=== PATIENT | male | born 1955 | race African-American/Black ===

== ENCOUNTER 2019-03-27 15:59 | Emergency (ER) | payer MEDICAID ==
[~2019-03-27] VITALS: Ht 180.3 cm; Wt 102.1 kg
[~2019-03-27 15:59] MED LIST: CAR3125T OR; DIGO0.1262 PO; ENAL2.5T PO; SIMV-8 PO
[2019-03-27] MEDS ORDERED: HYDROcodone-ACET 5/325MG TAB PO ONE (17:00)
[2019-03-27 17:25] VITALS: BP 120/68
== END 2019-03-27 18:09 | disposition home or self-care (01) ==
LOC: ER 16:08
DX: I87.2 Venous insufficiency (chronic) (peripheral) (principal); J45.909 Unspecified asthma, uncomplicated; I25.2 Old myocardial infarction; E11.22 Type 2 diabetes mellitus with diabetic chronic kidney disease; I13.0 Hypertensive heart and chronic kidney disease with heart failure and stage 1 through stage 4 chronic kidney disease, or unspecified chronic kidney disease; N18.9 Chronic kidney disease, unspecified; I50.9 Heart failure, unspecified; F14.90 Cocaine use, unspecified, uncomplicated; F15.90 Other stimulant use, unspecified, uncomplicated; Z88.2 Allergy status to sulfonamides; Z79.899 Other long term (current) drug therapy; Z95.0 Presence of cardiac pacemaker
CPT/HCPCS: 93971

== ENCOUNTER 2019-08-03 17:37 | Inpatient (IN) | payer MEDICARE, MEDICAID ==
[~2019-08-03] VITALS: Ht 180.3 cm; Wt 104.9 kg
[2019-08-03] MEDS ORDERED: ACETAMINOPHEN 325 MG TAB PO ONE (18:30)
[2019-08-03 19:20] LABS: Basophils # (auto) 0 uL; Basophils % (auto) 0.4 % (0.0-2.0); Eosinophils # (auto) 0 uL; Hematocrit 47.9 % (41.0-53.0); Hemoglobin 16.1 g/dL (13.5-17.5); Lymphocytes # (auto) 1.4 uL; Lymphocytes % (auto) 12.6 % (10.0-50.0); Mean Corpuscular Hemoglobin 32.2 pg (28.0-32.0); Mean Corpuscular Hgb Conc. 33.5 g/dL (32.0-36.0); Mean Corpuscular Volume 96.1 fL (80.0-100.0); Monocytes # (auto) 1.1 uL; Monocytes % (auto) 10.3 % (0.0-12.0); Neutrophils # (auto) 8.3 uL; Neutrophils % (auto) 76.7 % (37.0-80.0); Platelet Count (auto) 186 10^3/uL (140-450); Red Blood Cells 4.98 10^6/uL (4.5-5.90); Red Cell Distribution Width 14.5 % (11.8-14.3); White Blood Cell 10.9 10^3/uL (4.4-10.8)
[2019-08-03 19:29] LABS: Calcium 8.4 mg/dL (8.5-10.1); Potassium 3.9 mmol/L (3.5-5.1)
[2019-08-03 19:32] LABS: BUN/Creatinine Ratio 12.8; Bilirubin, Total 1.4 mg/dL (0.2-1.0); Total Protein 8.6 g/dL (6.4-8.2)
[2019-08-03 19:35] LABS: INR 1.13 (0.9-1.15); Partial Thromboplastin Time 27.7 sec (23.64-32.05)
[2019-08-03] MEDS ORDERED: FUROSEMIDE 40 MG/4 ML VIAL IV ONE (19:45)
[2019-08-03] MEDS ORDERED: IBUPROFEN 600 MG TAB PO ONE (20:15)
[2019-08-03] MEDS ORDERED: ACETAMINOPHEN 325 MG TAB PO PRN (21:15)
[2019-08-03] MEDS ORDERED: TEMAZEPAM 15 MG CAP PO PRN (21:15)
[2019-08-03] MEDS ORDERED: DEXTROSE (50%) 50ML SYRG IV PRN ×2 (21:15→22:30)
[2019-08-03] MEDS ORDERED: cefTRIAXone 1GM/50ML D5W 50 ML IV ONE (21:15)
[2019-08-03] MEDS ORDERED: MORPHINE SULF INJ 2 MG/ML SYRINGE 1ML IV PRN (21:15)
[2019-08-03] MEDS ORDERED: ALBUTEROL SULF 2.5 MG/0.5ML(0.5%) NEB SOLN NEB PRN ×2 (21:15)
[2019-08-03] MEDS ORDERED: NITROGLYCERIN 0.4 MG SL TAB SL PRN (21:15)
[2019-08-03 21:48] VITALS: BP 104/68
--- NOTE | 2019-08-03 21:52 | NUR ---
RT NOTE PT WAS SEE [facility] RT OFR PRN HHN TX. NO PRN TX INDICATED AT THIS TIME. HR 80. RR 18. BS CTA, POX 97%. CONT ORDERED Addendum: 08/03/19 at 2153 by Brooklyn Aiken RT Amended: Links added.
[2019-08-03] MEDS ORDERED: ENOXAPARIN SOD 100 MG/1 ML SYRINGE SC ONE (22:30)
[2019-08-03] MEDS: CARVEDILOL 3.125 MG TAB PO SCH (22:45)
[2019-08-03] MEDS: ATORVASTATIN 20 MG TAB PO SCH (22:45)
[2019-08-04] MEDS ORDERED: InsuLIN REG 1unit/0.01ml Soln (100units/ml) SC SCH
[2019-08-04] MEDS ORDERED: ACCU-CHEK COMFORT CURVE STRIP VI SCH
[2019-08-04] MEDS: ACCU-CHEK COMFORT CURVE STRIP VI SCH ×5 (01:40→23:21)
[2019-08-04] MEDS: InsuLIN REG 1unit/0.01ml Soln (100units/ml) SC SCH ×5 (01:40→23:21)
--- NOTE | 2019-08-04 02:51 | NUR ---
Telemetry admit from ER AILYN NORTON admitted to Telemetry unit after SBAR received. Patient oriented to CARLOS AHN RN primary RN, unit, room, bed, and unit policies regarding patient care and visiting hours. Patient now on continuous telemetry monitoring, tele box # 81 and telemetry reading on arrival to unit is SR. Patient placed on bedside oxygen, weighed by bedscale and encouraged to call if they need something. All questions and concerns addressed, patient verbalized understanding. Note:
[2019-08-04 05:07] VITALS: BP 109/77
[2019-08-04] MEDS ORDERED: FUROSEMIDE 20 MG/2 ML VIAL IV SCH (06:00)
[2019-08-04 06:07] LABS: Basophils # (auto) 0 uL; Basophils % (auto) 0.3 % (0.0-2.0); Eosinophils # (auto) 0 uL; Eosinophils % (auto) 0.1 % (0.0-7.0); Hematocrit 44.7 % (41.0-53.0); Hemoglobin 15.2 g/dL (13.5-17.5); Lymphocytes % (auto) 9.8 % (10.0-50.0); Mean Corpuscular Hemoglobin 32.7 pg (28.0-32.0); Mean Corpuscular Volume 96.1 fL (80.0-100.0); Monocytes # (auto) 1.2 uL; Monocytes % (auto) 11.2 % (0.0-12.0); Neutrophils # (auto) 8.1 uL; Neutrophils % (auto) 78.6 % (37.0-80.0); Nucleated Red Blood Cells % 0.1 %; Platelet Count (auto) 158 10^3/uL (140-450); Red Blood Cells 4.66 10^6/uL (4.5-5.90); Red Cell Distribution Width 14.3 % (11.8-14.3); White Blood Cell 10.3 10^3/uL (4.4-10.8)
[2019-08-04 06:24] LABS: Calcium 8.1 mg/dL (8.5-10.1); Potassium 4.1 mmol/L (3.5-5.1)
[2019-08-04 06:27] LABS: BUN/Creatinine Ratio 12.8
--- NOTE | 2019-08-04 07:30 | NUR ---
Opening Shift Note Assumed care of patient, awake and alert. No S/S of distress/SOB or pain. Instructed on POC and to call for assist PRN, will continue to monitor for changes Q1hr and PRN. Bed locked in lowest position with two side rails up and call light in reach.
[2019-08-04 08:00] VITALS: BP 118/81
[2019-08-04 08:09] LABS: Urine WBC None Seen /hpf (0 - 3)
--- NOTE | 2019-08-04 08:25 | NUR ---
Respiratory note: PT AWAKE, AND ALERT. NO RESPIRATORY DISTRESS NOTED. SPO2 95% ON RA, HR 79, RR 18, BS CLEAR T/O. NO PRN MEDNEB TX INDICATED AT THIS TIME. PT INFORMED TO PUSH CALL BUTTON IF INCREASED WOB, SOB, OR WHEEZING OCCURS.
[2019-08-04 08:34] LABS: Alcohol, Urine < 3.0 mg/dL (0-5); Amphetamine Screen, Urine POSITIVE (NEGATIVE); Barbiturate Scree,Urine NEGATIVE (NEGATIVE); Benzodiazephine Screen, Urine NEGATIVE (NEGATIVE); Cannabinoid Screen, Urine POSITIVE (NEGATIVE); Cocaine Screen, Urine NEGATIVE (NEGATIVE); Opiate Scree,Urine NEGATIVE (NEGATIVE); Phencyclidine Screen, Urine NEGATIVE (NEGATIVE)
[2019-08-04 08:53] LABS: Urine Bacteria NONE SEEN /hpf (None Seen); Urine Blood Negative /uL (Negative); Urine Hyaline Cast FEW /lpf (0 - 2); Urine Mucus FEW (None Seen); Urine Specific Gravity 1.009 (1.001-1.035)
[2019-08-04 09:00] VITALS: BP 118/81
[2019-08-04] MEDS: HYDROcodone-ACET 5/325MG TAB PO PRN ×2 (09:07→17:03)
[2019-08-04] MEDS: cefTRIAXone 1GM/50ML D5W 50 ML IV SCH (09:07)
[2019-08-04] MEDS: AMIODARONE HCL 200 MG TAB PO SCH (09:33)
[2019-08-04] MEDS: CLOPIDOGREL BISULFATE 75 MG TAB PO SCH (09:33)
[2019-08-04] MEDS: PANTOPRAZOLE 40 MG TAB PO SCH (09:33)
[2019-08-04] MEDS: CARVEDILOL 3.125 MG TAB PO SCH ×2 (09:34→21:42)
[2019-08-04] MEDS ORDERED: ASPirin 81 mg TAB PO SCH (10:00)
--- NOTE | 2019-08-04 10:45 | NUR ---
DR VI DIEGO
[2019-08-04 13:00] VITALS: BP 109/79
--- NOTE | 2019-08-04 16:50 | NUR ---
Dr. Liang Paged Received call from [employer] that patient had a run of multifocal PVC's and couplets. Dr. Liang paged to make aware. Waiting for call back.
[2019-08-04 17:00] VITALS: BP 144/67
[2019-08-04] MEDS: ASPirin 81 mg TAB PO SCH (17:00)
--- NOTE | 2019-08-04 17:30 | NUR ---
DR. LEBRON PAGED Patient requested to take a shower. Per Dr. Lebron, okay for patient to shower. Will continue to monitor.
[2019-08-04] MEDS: FUROSEMIDE 20 MG/2 ML VIAL IV SCH ×2 (18:00→18:27)
--- NOTE | 2019-08-04 18:23 | NUR ---
RT NOTE PRN ASSESSMENT DONE PRN NOT INDICATED AT THIS TIME.
--- NOTE | 2019-08-04 18:34 | NUR ---
WOUND PHOTOS TOOK PICTURES OF OLD WOUND THAT ARE SLIGHTLY OPEN ON THE LEFT KUNZ. PER PATIENT THEY WERE ALREADY THERE. DID NOT PLACE CONSULT ONLY PICTURES TAKEN.
--- NOTE | 2019-08-04 20:08 | NUR ---
Opening Shift Note Assumed care of patient, awake and alert. No S/S of distress/SOB or pain. Instructed on POC and to call for assist PRN, will continue to monitor for changes Q1hr and PRN.
[2019-08-04] MEDS: ATORVASTATIN 20 MG TAB PO SCH (21:42)
[2019-08-04 22:00] VITALS: BP 105/67
[2019-08-04] MEDS ORDERED: VANCOMYCIN PER PHARMACY 0 MG IV SCH (23:15)
--- NOTE | 2019-08-04 23:20 | NUR ---
Informed Dr. Upton T, regarding patient is blood culture positive in gram positive cocci in clusters, with order of give one gram vancomycin x one, then vancomycin every 12 hour, vanco. per pharmacy, repeat blood culture.
[2019-08-04] MEDS ORDERED: VANCOMYCIN 1GM/250ML 250 ML IV ONE (23:30)
[2019-08-05 04:30] VITALS: BP 103/72
[2019-08-05] MEDS: FUROSEMIDE 20 MG/2 ML VIAL IV SCH (05:22)
[2019-08-05] MEDS: ACCU-CHEK COMFORT CURVE STRIP VI SCH ×3 (05:23→17:50)
[2019-08-05] MEDS: InsuLIN REG 1unit/0.01ml Soln (100units/ml) SC SCH ×3 (05:46→17:50)
[2019-08-05 05:52] LABS: Basophils # (auto) 0 uL; Basophils % (auto) 0.5 % (0.0-2.0); Eosinophils # (auto) 0 uL; Eosinophils % (auto) 0.1 % (0.0-7.0); Hematocrit 43.2 % (41.0-53.0); Lymphocytes # (auto) 1.3 uL; Lymphocytes % (auto) 14.8 % (10.0-50.0); Mean Corpuscular Hemoglobin 32.9 pg (28.0-32.0); Mean Corpuscular Hgb Conc. 34.6 g/dL (32.0-36.0); Mean Corpuscular Volume 95.1 fL (80.0-100.0); Monocytes # (auto) 0.9 uL; Monocytes % (auto) 10.8 % (0.0-12.0); Neutrophils # (auto) 6.3 uL; Neutrophils % (auto) 73.8 % (37.0-80.0); Nucleated Red Blood Cells % 0.1 %; Platelet Count (auto) 166 10^3/uL (140-450); Red Blood Cells 4.55 10^6/uL (4.5-5.90); Red Cell Distribution Width 14.1 % (11.8-14.3); White Blood Cell 8.6 10^3/uL (4.4-10.8)
[2019-08-05] MEDS: HYDROcodone-ACET 5/325MG TAB PO PRN ×3 (05:53→21:47)
[2019-08-05 05:54] LABS: INR 1.13 (0.9-1.15); Partial Thromboplastin Time 31.1 sec (23.64-32.05)
[2019-08-05 05:57] LABS: Albumin 3.1 g/dL (3.4-5.0); Calcium 7.7 mg/dL (8.5-10.1)
[2019-08-05 06:00] LABS: BUN/Creatinine Ratio 15.2; Bilirubin, Total 0.9 mg/dL (0.2-1.0); Potassium 3.7 mmol/L (3.5-5.1); Total Protein 7.2 g/dL (6.4-8.2)
--- NOTE | 2019-08-05 07:19 | NUR ---
Report given to Mario Mcgee,patient is resting no distress.
--- NOTE | 2019-08-05 07:25 | NUR ---
PAGED DR GERARDO FOR TROPONIN .[phone]
[2019-08-05 09:00] VITALS: BP_SYST 107; BP_SYST 116; BP_DIAS 54; BP_DIAS 71
[2019-08-05] MEDS: CARVEDILOL 3.125 MG TAB PO SCH ×2 (09:58→21:46)
[2019-08-05] MEDS: AMIODARONE HCL 200 MG TAB PO SCH (10:00)
[2019-08-05] MEDS ORDERED: VANCOMYCIN 1GM/250ML 250 ML IV SCH (10:00)
[2019-08-05] MEDS: CLOPIDOGREL BISULFATE 75 MG TAB PO SCH (11:07)
[2019-08-05] MEDS: ASPirin 81 mg TAB PO SCH (11:07)
[2019-08-05] MEDS: PANTOPRAZOLE 40 MG TAB PO SCH (11:07)
[2019-08-05] MEDS: cefTRIAXone 1GM/50ML D5W 50 ML IV SCH (11:08)
[2019-08-05] MEDS: FUROSEMIDE 40 MG/4 ML VIAL IV SCH (11:10)
[2019-08-05 13:00] VITALS: BP_SYST 116; BP_SYST 128; BP_DIAS 54; BP_DIAS 67
[2019-08-05 17:00] VITALS: BP 112/56
[2019-08-05] MEDS ORDERED: VANCOMYCIN 1GM/250ML 250 ML IV ONE (18:00)
--- NOTE | 2019-08-05 20:08 | NUR ---
Respiratory note: ASSESSMENT FOR PRN MED NEB TX. HR 68, SPO2 93% ON ROOM AIR, RR 17, BS CLEAR/DIMINISHED. PT PRESENTING NO RESPIRATORY DISTRESS AT THIS TIME. MED NEB TX NOT INDICATED. PT AWARE TO HAVE RN PAGE RT IF MED NEB TX IS NEEDED. WILL CONTINUE TO MONITOR.
[2019-08-05 21:36] VITALS: BP 140/92
[2019-08-05] MEDS: ATORVASTATIN 20 MG TAB PO SCH (21:45)
[2019-08-06] MEDS: ACCU-CHEK COMFORT CURVE STRIP VI SCH ×4 (00:13→18:35)
[2019-08-06 05:00] VITALS: BP 129/77
[2019-08-06] MEDS: InsuLIN REG 1unit/0.01ml Soln (100units/ml) SC SCH ×4 (06:00→18:00)
[2019-08-06 06:02] LABS: Potassium 3.7 mmol/L (3.5-5.1)
--- NOTE | 2019-08-06 06:15 | NUR ---
ENDOSCOPY REGISTERED NURSE REPORT RUN OF VTACH. upon entering room, pt awake, alert and oriented x4. pt on room air no distress noted. pt denies any pain. 12 lead ekg obtained at bedside, placed in chart. will continue to monitor. will endorse to krysta RN.
[2019-08-06 06:26] LABS: Albumin 3.1 g/dL (3.4-5.0); BUN/Creatinine Ratio 14.9; Bilirubin, Total 0.8 mg/dL (0.2-1.0); Calcium 8.2 mg/dL (8.5-10.1); Total Protein 8.1 g/dL (6.4-8.2)
[2019-08-06] MEDS: HYDROcodone-ACET 5/325MG TAB PO PRN ×2 (06:30→19:16)
--- NOTE | 2019-08-06 06:30 | NUR ---
blood sugar 49. pt awake, alert and oriented x4. pt given 12 oz of orange juice which he tolerated without issue. recheck in 15 minutes, blood glucose recheck 79. call light in reach, no additional complaints.
--- NOTE | 2019-08-06 07:25 | NUR ---
paged hospitalist for run of vtach. pt no complaints at this time. endorsed to day nurse wesley
[2019-08-06 08:37] VITALS: BP 142/88
--- NOTE | 2019-08-06 08:50 | NUR ---
Respiratory note: HR 58, RR 14, SPO2 95% ON RA, BS CLEAR. PRN MED NEB TX NOT INDICATED AT THIS TIME. NO SIGNS OR SYMPTOMS OF RESPIRATORY DISTRESS NOTED. PT INFORMED TO HIT CALL BUTTON IF FEELING SOB OR WHEEZING.
[2019-08-06] MEDS: FUROSEMIDE 40 MG/4 ML VIAL IV SCH (10:27)
[2019-08-06] MEDS: cefTRIAXone 1GM/50ML D5W 50 ML IV SCH (10:27)
[2019-08-06] MEDS: CARVEDILOL 3.125 MG TAB PO SCH ×2 (10:28→22:40)
[2019-08-06] MEDS: ASPirin 81 mg TAB PO SCH (10:28)
[2019-08-06] MEDS: AMIODARONE HCL 200 MG TAB PO SCH (10:28)
[2019-08-06] MEDS: PANTOPRAZOLE 40 MG TAB PO SCH (10:29)
[2019-08-06] MEDS: CLOPIDOGREL BISULFATE 75 MG TAB PO SCH (10:29)
[2019-08-06 12:51] VITALS: BP 132/82
[2019-08-06] MEDS ORDERED: FURO1TAB31 PO (14:04)
[2019-08-06] MEDS ORDERED: PANT40T PO (14:04)
[2019-08-06] MEDS ORDERED: ASPI81CH43 PO (14:04)
[2019-08-06] MEDS ORDERED: ATOR20TA50 PO (14:04)
[2019-08-06] MEDS ORDERED: CAR3125T PO (14:04)
[2019-08-06] MEDS ORDERED: AMIO200T4 PO (14:04)
[2019-08-06] MEDS ORDERED: LEVO750T64 PO (14:04)
[2019-08-06] MEDS ORDERED: CLOP75TA28 PO (14:04)
[2019-08-06] MEDS ORDERED: ACE325T PO (14:04)
[2019-08-06] MEDS ORDERED: LISI-275 PO (14:04)
[2019-08-06 15:11] VITALS: BP 142/88
[2019-08-06 16:41] VITALS: BP 162/71
--- NOTE | 2019-08-06 16:43 | NUR ---
DAUGHTER AT BEDSIDE PATIENT STATED HE DOES NOT FEEL WELL. HE STATES HE IS A LITTLE SHORT OF BREATH. OXYGEN SATURATION 90% ON ROOM AIR. PAGED RESPIRATORY FOR A BREATHING TREATMENT.
--- NOTE | 2019-08-06 17:07 | NUR ---
RT AT BEDSIDE OXYGEN OXYGEN 83 % ON ROOM AIR BREATHING TREATMENT GIVEN PATIENT ON 4 LITERS NASAL CANULA SATING 98% I ASKED PATIENT HOW HE FEELS HE SAID HE WANTS TO GO HOME AND FEELS LIKE HE CAN RUN. DAUGHTER AT BEDSIDE. WILL CONTINUE TO MONITOR. PATIENT DOES NOT HAVE HOME OXYGEN. WILL PAGE HOSPITALIST FOR POSSIBLE ABG ON ROOM AIR TO MAKE SURE PATIENT DOES NEED OXYGEN FOR HOME.
--- NOTE | 2019-08-06 17:11 | NUR ---
PAGED HOSPITALIST FOR ABG ORDER.
--- NOTE | 2019-08-06 19:15 | NUR ---
DISCHARGE ON HOLD Dr Vogel stated pt will be monitored overnight and reevaluated in the morning.
--- NOTE | 2019-08-06 19:30 | NUR ---
open note assumed care of pt. upon entering room pt awake, alert and oriented x4. pt daughter at bedside. pt updated on plan of care no questions at this time. pt medicated per MD order for headache. pt bed locked, low and 2x rails up. pt on 2L NC with no distress noted or expressed. pt call light in reach, encouraged by this nurse to call as needed. will round q1hr and prn
--- NOTE | 2019-08-06 20:00 | NUR ---
pt assisted to bathroom with standby assist.
[2019-08-06 21:28] VITALS: BP 125/85
[2019-08-06] MEDS: ATORVASTATIN 20 MG TAB PO SCH (22:40)
--- NOTE | 2019-08-06 22:46 | NUR ---
Respiratory note: ASSESSED PT FOR PRN MED NEB TX. PT IS CURRENTLY ON 2 L/M NC: HR 69, RR 18, SPO2 97%. PT SHOWS NO S/S OF SOB OR RESPIRATORY DISTRESS. MED NEB TX NOT INDICATED AT THIS TIME. PT AWARE TO NOTIFY RESPIRATORY IF SOB OCCURS. WILL CONTINUE TO MONITOR.
[2019-08-07] MEDS: ACCU-CHEK COMFORT CURVE STRIP VI SCH ×3 (00:26→12:00)
[2019-08-07 03:21] VITALS: BP 128/87
[2019-08-07] MEDS: HYDROcodone-ACET 5/325MG TAB PO PRN ×2 (03:59→10:08)
[2019-08-07 05:19] LABS: Basophils # (auto) 0.4 uL; Basophils % (auto) 3.4 % (0.0-2.0); Eosinophils # (auto) 0 uL; Eosinophils % (auto) 0.1 % (0.0-7.0); Hematocrit 43.6 % (41.0-53.0); Hemoglobin 15.4 g/dL (13.5-17.5); Lymphocytes # (auto) 1.3 uL; Lymphocytes % (auto) 11.4 % (10.0-50.0); Mean Corpuscular Hemoglobin 32.4 pg (28.0-32.0); Mean Corpuscular Hgb Conc. 35.2 g/dL (32.0-36.0); Monocytes # (auto) 1.2 uL; Monocytes % (auto) 10.5 % (0.0-12.0); Neutrophils # (auto) 8.5 uL; Neutrophils % (auto) 74.6 % (37.0-80.0); Platelet Count (auto) 180 10^3/uL (140-450); Red Blood Cells 4.74 10^6/uL (4.5-5.90); Red Cell Distribution Width 14.2 % (11.8-14.3); White Blood Cell 11.5 10^3/uL (4.4-10.8)
[2019-08-07 05:25] VITALS: BP 118/76
[2019-08-07 05:37] LABS: Albumin 2.9 g/dL (3.4-5.0); Calcium 8.1 mg/dL (8.5-10.1); Potassium 3.9 mmol/L (3.5-5.1)
[2019-08-07 05:41] LABS: BUN/Creatinine Ratio 16.9; Bilirubin, Total 0.6 mg/dL (0.2-1.0); Total Protein 7.6 g/dL (6.4-8.2)
[2019-08-07] MEDS: InsuLIN REG 1unit/0.01ml Soln (100units/ml) SC SCH ×3 (06:00→12:00)
[2019-08-07 08:00] VITALS: BP 102/57
--- NOTE | 2019-08-07 08:00 | NUR ---
Opening Shift Note Assumed care of patient, awake and alert. Patient on 2L NC. No S/S of distress/SOB Patient c/o bilateral lower extremity pain, rates it 02/20. Will medicate per MD orders. Bed at lowest locked position , bed side rails up x2 and call light within reach. Instructed on POC and to call for assist PRN, will continue to monitor for changes Q1hr and PRN.
[2019-08-07 08:53] VITALS: BP 102/51
[2019-08-07] MEDS: CLOPIDOGREL BISULFATE 75 MG TAB PO SCH (10:06)
[2019-08-07] MEDS: PANTOPRAZOLE 40 MG TAB PO SCH (10:06)
[2019-08-07] MEDS: ASPirin 81 mg TAB PO SCH (10:07)
[2019-08-07] MEDS: CARVEDILOL 3.125 MG TAB PO SCH (10:07)
[2019-08-07] MEDS: FUROSEMIDE 40 MG/4 ML VIAL IV SCH (10:08)
[2019-08-07] MEDS: cefTRIAXone 1GM/50ML D5W 50 ML IV SCH (10:08)
[2019-08-07] MEDS: AMIODARONE HCL 200 MG TAB PO SCH (10:09)
--- NOTE | 2019-08-07 12:46 | NUR ---
Respiratory note: ASSESSED PATIENT FOR PRN BREATHING TX. PATIENT IS CURRENTLY ON ROOM AIR, NO S/S OF RESPIRATORY DISTRESS. PATIENT VITALS ARE RR 108, SP02 96%, HR 73. WILL CONTINUE TO MONITOR PATIENT.
[2019-08-07 12:54] VITALS: BP 107/40
[2019-08-07] MEDS ORDERED: VANCOMYCIN 1GM/250ML 250 ML IV ONE (13:00)
--- NOTE | 2019-08-07 16:24 | NUR ---
Discharge instructions given as ordered. Encourage to follow up with PMD as instructed. All questions and concerns addressed. Patient verbalized understanding. Medication reconciliation form completed and copy given to patient. IV removed with catheter intact, pressure dressing applied. padilla. Telemetry unit returned to ICU. Patient taken to vehicle via wheelchair with all personal belongings, accompanied by staff and family member( daughter). No distress noted at time of departure.
== END 2019-08-07 16:10 | disposition home or self-care (01) | DRG 280 ==
LOC: ER 17:37 → TELE 17:38 → TELE-WESTW 23:51
PROVIDERS: ADMIT Nurse Practitioner; ATTEND Internal Medicine
DX: I21.4 Non-ST elevation (NSTEMI) myocardial infarction (principal); I50.43 Acute on chronic combined systolic (congestive) and diastolic (congestive) heart failure; N17.0 Acute kidney failure with tubular necrosis; I48.20 Chronic atrial fibrillation, unspecified; I13.0 Hypertensive heart and chronic kidney disease with heart failure and stage 1 through stage 4 chronic kidney disease, or unspecified chronic kidney disease; I42.0 Dilated cardiomyopathy; E11.22 Type 2 diabetes mellitus with diabetic chronic kidney disease; E66.9 Obesity, unspecified; N18.3 Chronic kidney disease, stage 3 (moderate); J45.909 Unspecified asthma, uncomplicated; I25.2 Old myocardial infarction; E11.65 Type 2 diabetes mellitus with hyperglycemia; G47.00 Insomnia, unspecified; I50.82 Biventricular heart failure; N27.0 Small kidney, unilateral; I87.2 Venous insufficiency (chronic) (peripheral); E78.5 Hyperlipidemia, unspecified; I25.10 Atherosclerotic heart disease of native coronary artery without angina pectoris; F15.90 Other stimulant use, unspecified, uncomplicated; Z88.2 Allergy status to sulfonamides; Z82.49 Family history of ischemic heart disease and other diseases of the circulatory system; Z85.038 Personal history of other malignant neoplasm of large intestine; Z95.810 Presence of automatic (implantable) cardiac defibrillator; Z79.82 Long term (current) use of aspirin; Z68.32 Body mass index [BMI] 32.0-32.9, adult; Z79.899 Other long term (current) drug therapy
CPT/HCPCS: 36415; 36600; 71045; 76775; 80048; 80053; 80202; 80307; 81001; 82550; 82570; 82805; 82962; 83605; 83880; 84100; 84156; 84300; 84484; 85025; 85610; 85730; 87040; 93005; 93306; 94640; 96365; 96372; 96375; 99291; G0378; J0696; J1815

== ENCOUNTER 2020-08-15 19:18 | Inpatient (IN) | payer MEDICARE ==
[~2020-08-15] VITALS: Ht 177.8 cm; Wt 95.3 kg
[~2020-08-15 19:18] MED LIST changes: +ACE325T PO; +AMIO200T4 PO; +ASPI81CH43 PO; +ATOR20TA50 PO; -CAR3125T OR; +CAR3125T PO; +CLOP75TA28 PO; -DIGO0.1262 PO; -ENAL2.5T PO; +FURO1TAB31 PO; +LEVO750T64 PO; +LISI-275 PO; +PANT40T PO; -SIMV-8 PO
[2020-08-15 22:01] LABS: Basophils # (auto) 0 10 ^3/uL (0-0.2); Basophils % (auto) 0.2 % (0.0-2.0); Eosinophils # (auto) 0 10 ^3/uL (0-0.8); Eosinophils % (auto) 0.1 % (0.0-7.0); Hemoglobin 15.3 g/dL (13.5-17.5); Lymphocytes # (auto) 0.8 10 ^3/uL (0.4-5.4); Lymphocytes % (auto) 12.2 % (10.0-50.0); Mean Corpuscular Hemoglobin 31.9 pg (28.0-32.0); Mean Corpuscular Hgb Conc. 33.2 g/dL (32.0-36.0); Monocytes # (auto) 0.5 10 ^3/uL (0-1.3); Monocytes % (auto) 8.8 % (0.0-12.0); Neutrophils # (auto) 4.9 10 ^3/uL (1.6-8.6); Neutrophils % (auto) 78.7 % (37.0-80.0); Nucleated Red Blood Cells % 0.1 %; Platelet Count (auto) 247 10^3/uL (140-450); Red Cell Distribution Width 14.1 % (11.8-14.3); White Blood Cell 6.2 10^3/uL (4.4-10.8)
[2020-08-15 22:19] LABS: INR 1.77 (0.9-1.15); Partial Thromboplastin Time 48.2 sec (23.0-31.2)
[2020-08-15 22:22] LABS: Calcium 8.2 mg/dL (8.5-10.1); Magnesium 2.6 mg/dL (1.6-2.6); Potassium 4.5 mmol/L (3.5-5.1)
[2020-08-15 22:25] LABS: BUN/Creatinine Ratio 15.1; Bilirubin, Total 0.7 mg/dL (0.2-1.0); Total Protein 8.1 g/dL (6.4-8.2)
[2020-08-15] MEDS ORDERED: ASPirin 81 mg TAB PO ONE (23:00)
[2020-08-15] MEDS ORDERED: FUROSEMIDE 20 MG/2 ML VIAL IV ONE (23:00)
[2020-08-16 00:56] LABS: Urine Bacteria FEW /hpf (None Seen); Urine Blood TRACE /uL (Negative); Urine Hyaline Cast FEW /lpf (0 - 2); Urine Specific Gravity 1.011 (1.001-1.035); Urine WBC 1 /hpf (0 - 3)
[2020-08-16] MEDS ORDERED: HYDR-2691 PO (00:59)
[2020-08-16] MEDS ORDERED: RIV15T PO (00:59)
[2020-08-16] MEDS ORDERED: FURO40TA4 PO (00:59)
[2020-08-16] MEDS ORDERED: GABA300C10 PO (00:59)
[2020-08-16] MEDS ORDERED: TOPI25TA84 PO (00:59)
[2020-08-16] MEDS ORDERED: HETASTARCH IV ONE (03:00)
[2020-08-16] MEDS ORDERED: NITROGLYCERIN 0.4 MG SL TAB SL PRN (03:30)
[2020-08-16] MEDS ORDERED: DOCUSATE SOD 100 MG CAP PO PRN (03:30)
[2020-08-16] MEDS ORDERED: ACETAMINOPHEN 500 MG TAB PO PRN (03:30)
[2020-08-16] MEDS ORDERED: MORPHINE SULF INJ 2 MG/ML SYRINGE 1ML IV PRN (03:30)
[2020-08-16] MEDS ORDERED: DEXTROSE (50%) 50ML SYRG IV PRN (04:45)
[2020-08-16] MEDS: InsuLIN REG 1unit/0.01ml Soln (100units/ml) SC SCH ×4 (06:00→23:53)
--- NOTE | 2020-08-16 06:01 | NUR ---
Pt arrived via gurney. pt transferred to hospital bed and attached to 10L non rebreather.
[2020-08-16 06:30] VITALS: BP 119/75
--- NOTE | 2020-08-16 06:39 | NUR ---
ER CALLED CARDIO CONSULT WITH .
--- NOTE | 2020-08-16 06:50 | NUR ---
blood sugar 22, dextrose administered. hospitalist paged.
--- NOTE | 2020-08-16 07:00 | NUR ---
Hospitalist made aware of blood sugar of 22. no new orders at this time.
[2020-08-16] MEDS: ACCU-CHEK COMFORT CURVE STRIP VI SCH ×4 (07:05→23:53)
--- NOTE | 2020-08-16 07:05 | NUR ---
blood sugar recheck, 120. will continue to monitor.
[2020-08-16] MEDS: SODIUM CHLOR 0.9% PF (SALINE LOCK) 10ML VIAL/SYR IV SCH ×3 (07:07→23:52)
--- NOTE | 2020-08-16 07:30 | NUR ---
Opening Shift Note Assumed patient care from NOC RN. Patient currently on 10L nonrebreather resting on left side. No signs of distress noted at this time. Patient denies shortness of breath at this time, although continues to be tachypneic. Patient is AOx4 and easy to arouse. Safety precautions in place. Patient provided with call light. Will continue to monitor q1hr and PRN.
--- NOTE | 2020-08-16 07:46 | NUR ---
closing note pt is on 10L non rebreather, o2 saturation is 98%. no complaints of pain. pt is alert and oriented x4 at this time. pt is non compliant with non rebreather mask, and continues to remove it. pt is reminded to keep non rebreather on at all times.
[2020-08-16 08:30] VITALS: BP 118/75
--- NOTE | 2020-08-16 09:00 | NUR ---
Serial EKG Serial EKG obtained per orders. Patient currently shows no signs of distress. No complaints of chest pain or diaphoresis noted at this time. Patient resting comfortably on 10L nonrebreather. No changes from baseline noted at this time.
[2020-08-16] MEDS ORDERED: HEPARIN SODIUM (PORCINE) 5000 UNITS/ML 1ML VIAL SC SCH (10:00)
[2020-08-16] MEDS: BUDESONIDE (INHALATION) 180 MCG IH IN SCH ×2 (10:00→22:00)
[2020-08-16] MEDS: FUROSEMIDE 40 MG/4 ML VIAL IV SCH (10:19)
[2020-08-16] MEDS: DOXYCYCLINE 100MG/250ML 250 ML IV SCH ×2 (10:19→23:53)
[2020-08-16] MEDS: FAMOTIDINE INJECTION 40 MG in SODIUM CHL 0.9% 100 ML IV SCH (10:19)
[2020-08-16] MEDS: DexAMETHasone SOD PHOS 10MG/1ML VIAL INJ IV SCH (10:19)
[2020-08-16] MEDS: ASPirin 81 mg TAB PO SCH (10:20)
[2020-08-16] MEDS: CHOLECALCIFEROL (VITD3) 2,000 UNIT CAP PO SCH (10:20)
[2020-08-16] MEDS: ASCORBIC ACID 1,000 MG TAB PO SCH (10:20)
[2020-08-16] MEDS: MULTIPLE VITAMIN TAB PO SCH (10:20)
[2020-08-16] MEDS: ZINC SULFATE 220mg CAP or TAB PO SCH (10:21)
--- NOTE | 2020-08-16 11:20 | NUR ---
Called Per Dr. Duggan, discontinue serial EKGs at this time.
[2020-08-16 11:23] LABS: Basophils # (auto) 0.1 10 ^3/uL (0-0.2); Basophils % (auto) 1.4 % (0.0-2.0); Eosinophils # (auto) 0 10 ^3/uL (0-0.8); Eosinophils % (auto) 0.1 % (0.0-7.0); Hematocrit 47.4 % (41.0-53.0); Lymphocytes # (auto) 1.2 10 ^3/uL (0.4-5.4); Lymphocytes % (auto) 19.7 % (10.0-50.0); Mean Corpuscular Hemoglobin 32.1 pg (28.0-32.0); Mean Corpuscular Hgb Conc. 33.6 g/dL (32.0-36.0); Mean Corpuscular Volume 95.4 fL (80.0-100.0); Monocytes # (auto) 0.7 10 ^3/uL (0-1.3); Monocytes % (auto) 10.8 % (0.0-12.0); Neutrophils # (auto) 4.3 10 ^3/uL (1.6-8.6); Nucleated Red Blood Cells % 0.1 %; Platelet Count (auto) 252 10^3/uL (140-450); Red Blood Cells 4.97 10^6/uL (4.5-5.90); Red Cell Distribution Width 13.8 % (11.8-14.3); White Blood Cell 6.3 10^3/uL (4.4-10.8)
[2020-08-16 11:45] LABS: Albumin 2.9 g/dL (3.4-5.0); Calcium 8.3 mg/dL (8.5-10.1); Magnesium 2.6 mg/dL (1.6-2.6); Potassium 4.3 mmol/L (3.5-5.1)
[2020-08-16] MEDS ORDERED: diphenhdrAMINE HCL 50 MG/1 ML VL IV PRN (11:45)
[2020-08-16 11:48] LABS: BUN/Creatinine Ratio 15.2; Bilirubin, Total 0.8 mg/dL (0.2-1.0); Total Protein 7.7 g/dL (6.4-8.2)
--- NOTE | 2020-08-16 12:34 | NUR ---
at Bedside Dr. Duggan at bedside discussing plan of care with patient. New orders received, will carry out.
--- NOTE | 2020-08-16 12:37 | NUR ---
U/A Urinalysis sent to lab. Tech aware.
--- NOTE | 2020-08-16 12:38 | NUR ---
Reassessed blood glucose Blood glucose of 61; MD notified. Patient given 2 cranberry juice. 30 minute reassessment glucose is currently 149. Patient is AOx4, no signs of distress.
--- NOTE | 2020-08-16 12:38 | NUR ---
Plasma Consent Obtained informed consent for plasma. Patient is AOx4 and verbalized understanding. Addendum: 08/16/20 at 1239 by CHINMAY PATEL RN RN Obtained signature for informed consent.
--- NOTE | 2020-08-16 12:58 | NUR ---
Patient Rounds Patient had removed nonrebreather mask and had complaint of "feeling hot." Patient sitting up at side of bed. Patient assisted to supine position. VS as follows: 103/67, RR 30, HR 94, SpO2 91% on 15L nonrebreather. T. 96.2. BG 163. paged. Safety precautions in place, call light within reach.
[2020-08-16 13:00] VITALS: BP 101/58
[2020-08-16 13:00] LABS: Alcohol, Urine < 3.0 mg/dL (0-10); Amphetamine Screen, Urine NEGATIVE (NEGATIVE); Barbiturate Scree,Urine NEGATIVE (NEGATIVE); Benzodiazephine Screen, Urine NEGATIVE (NEGATIVE); Cannabinoid Screen, Urine POSITIVE (NEGATIVE); Cocaine Screen, Urine NEGATIVE (NEGATIVE); Opiate Scree,Urine NEGATIVE (NEGATIVE); Phencyclidine Screen, Urine NEGATIVE (NEGATIVE)
--- NOTE | 2020-08-16 13:10 | NUR ---
Received return call from Dr. Duggan. No new orders at this time, attempt to make patient a sitter patient, will notify relief charge nurse. Addendum: 08/16/20 at 1707 by CHINMAY PATEL RN RN MD aware of patient current status/vitals.
--- NOTE | 2020-08-16 13:12 | NUR ---
Patient Rounds Patient called enterprise integration developer light stating, "I feel hot." Patient temperature reassessed. Oral temperature currently 98.9. No signs of distress noted at this time; patient on 15L nonrebreather, no signs of distress at this time. Safety precautions in place, call light within reach. Patient currently AOx4, will continue to monitor q1hr and PRN.
--- NOTE | 2020-08-16 13:20 | NUR ---
Patient Rounds Called into patient room. Patient found on floor, diaphoretic and saying "I felt hot." Per patient he had "rolled off the bed when I felt hot." Patient assisted back to bed. VS: 127.82 HR 69 [id number]% on 15L nonrebreather, RR 30. T. 97.[address] Duggan, continue with sitter orders and obtain head CT w/o contrast. Safety precautions in place, call light within reach. Bed alarm on. Per Jewelry Department SupervisorKizzy, will find a sitter for patient. Will continue to monitor q1hr and PRN. Addendum: 08/16/20 at 1403 by CHINMAY PATEL RN RN Patient is AOx4. Will continue to monitor q1hr and PRN.
--- NOTE | 2020-08-16 13:37 | NUR ---
Critical Lab Value Received call from lab regarding critical lab value.
--- NOTE | 2020-08-16 13:39 | NUR ---
Paged Paged Dr. Duggan regarding critical lab value.
--- NOTE | 2020-08-16 13:41 | NUR ---
MD Dr. Duggan aware of patient troponin.
--- NOTE | 2020-08-16 13:44 | NUR ---
MD Dr. Gunn aware of patient troponin levels. No new orders at this time.
--- NOTE | 2020-08-16 14:17 | NUR ---
Patient Off Unit Patient taken off unit for CT scan. Patient transferred to wheelchair independently and without incidence. Patient transported on 15L nonrebreather. Addendum: 08/16/20 at 1419 by CHINMAY PATEL RN RN No signs of distress at departure.
--- NOTE | 2020-08-16 15:17 | NUR ---
RT at Station Per RT, Aimee, patient had removed nonrebreather mask. Per Aimee, patient placed on oxymizer 15L at this time. Patient currently laying in bed on left side, oxymizer on. Safety precautions, including bed alarm in place. Will continue to monitor q1hr and PRN.
--- NOTE | 2020-08-16 15:46 | NUR ---
Critical Lab Received call regarding troponin levels. Dr. Gunn notified, will await call back.
[2020-08-16] MEDS: ALBUTEROL SULF HFA 90MCG INH 200DOSE IN PRN ×2 (16:27→22:00)
[2020-08-16 17:00] VITALS: BP 108/61
--- NOTE | 2020-08-16 17:03 | NUR ---
Attempt to Call Next of Kin Attempted to call back next of kin. Phone number not in service.
--- NOTE | 2020-08-16 18:00 | NUR ---
Family Spoke with patient's sister, password confirmed, updated on status and plan of care. All questions answered.
--- NOTE | 2020-08-16 18:08 | NUR ---
Patient Rounds Patient currently up in bed, no signs of distress at this time. Respirations even and unlabored on 15L oxymizer. Patient currently talking on phone with girlfriend, Aimee, regarding plan of care. Patient is AOx4, answers all questions appropriately. Safety precautions in place, bed alarm on; will continue to monitor q1hr and PRN.
--- NOTE | 2020-08-16 18:43 | NUR ---
Called Dietary Called Dietary for dinner tray as no tray was delivered.
[2020-08-16 21:00] VITALS: BP 108/71
[2020-08-16] MEDS: ATORVASTATIN 20 MG TAB PO SCH (23:53)
[2020-08-17] VITALS (7 sets, daily range): BP systolic 94–121; BP diastolic 56–84
[2020-08-17 05:38] LABS: Basophils # (auto) 0 10 ^3/uL (0-0.2); Basophils % (auto) 0.2 % (0.0-2.0); Eosinophils # (auto) 0 10 ^3/uL (0-0.8); Eosinophils % (auto) 0.1 % (0.0-7.0); Hematocrit 47.6 % (41.0-53.0); Lymphocytes # (auto) 0.8 10 ^3/uL (0.4-5.4); Lymphocytes % (auto) 16.7 % (10.0-50.0); Mean Corpuscular Hemoglobin 31.9 pg (28.0-32.0); Mean Corpuscular Hgb Conc. 33.5 g/dL (32.0-36.0); Mean Corpuscular Volume 95.2 fL (80.0-100.0); Monocytes # (auto) 0.6 10 ^3/uL (0-1.3); Monocytes % (auto) 12.1 % (0.0-12.0); Neutrophils # (auto) 3.2 10 ^3/uL (1.6-8.6); Neutrophils % (auto) 70.9 % (37.0-80.0); Nucleated Red Blood Cells % 0.4 %; Platelet Count (auto) 285 10^3/uL (140-450); Red Cell Distribution Width 14.1 % (11.8-14.3); White Blood Cell 4.6 10^3/uL (4.4-10.8)
[2020-08-17] MEDS: InsuLIN REG 1unit/0.01ml Soln (100units/ml) SC SCH ×4 (06:00→23:31)
[2020-08-17 06:01] LABS: Albumin 2.8 g/dL (3.4-5.0); Calcium 8.3 mg/dL (8.5-10.1); Potassium 4.8 mmol/L (3.5-5.1)
[2020-08-17 06:05] LABS: BUN/Creatinine Ratio 19.9; Bilirubin, Total 0.6 mg/dL (0.2-1.0); Total Protein 7.7 g/dL (6.4-8.2)
[2020-08-17] MEDS: SODIUM CHLOR 0.9% PF (SALINE LOCK) 10ML VIAL/SYR IV SCH ×3 (06:09→23:29)
[2020-08-17] MEDS: MORPHINE SULFATE 4 MG/ML SYR/VIAL IV PRN (06:10)
[2020-08-17] MEDS: ACCU-CHEK COMFORT CURVE STRIP VI SCH ×4 (06:10→23:30)
[2020-08-17] MEDS: BUDESONIDE (INHALATION) 180 MCG IH IN SCH ×2 (07:05→19:14)
--- NOTE | 2020-08-17 07:26 | NUR ---
closing note. pt is on 15 liters oxymizer. no respiratory distress noted. pt is sleeping. endorsed care to day shift RALPH Fuentes.
--- NOTE | 2020-08-17 07:30 | NUR ---
Opening Shift Note Assumed patient care from NOC RN. Patient currently laying supine in bed, no signs of distress at this time. Respirations even and unlabored on 15L oxymizer. Safety precautions, including but not limited to: sitter, fall risk band, fall socks, and bed alarm, in place. Will continue to monitor q1hr and PRN.
[2020-08-17] MEDS: DexAMETHasone SOD PHOS 10MG/1ML VIAL INJ IV SCH (09:27)
[2020-08-17] MEDS: ASPirin 81 mg TAB PO SCH (09:27)
[2020-08-17] MEDS: FUROSEMIDE 40 MG/4 ML VIAL IV SCH (09:27)
[2020-08-17] MEDS: DOXYCYCLINE 100MG/250ML 250 ML IV SCH ×2 (09:27→23:29)
[2020-08-17] MEDS: ASCORBIC ACID 1,000 MG TAB PO SCH (09:28)
[2020-08-17] MEDS: MULTIPLE VITAMIN TAB PO SCH (09:28)
[2020-08-17] MEDS: AMIODARONE HCL 200 MG TAB PO SCH (09:28)
[2020-08-17] MEDS: ZINC SULFATE 220mg CAP or TAB PO SCH (09:28)
[2020-08-17] MEDS: CHOLECALCIFEROL (VITD3) 2,000 UNIT CAP PO SCH (09:30)
[2020-08-17] MEDS: METOPROLOL SUCCINATE XL 50 MG TAB PO SCH (09:31)
[2020-08-17] MEDS: FAMOTIDINE INJECTION 40 MG in SODIUM CHL 0.9% 100 ML IV SCH (10:00)
[2020-08-17] MEDS ORDERED: ENOXAPARIN SOD 100 MG/1 ML SYRINGE SC SCH (10:00)
--- NOTE | 2020-08-17 11:20 | NUR ---
at Station Dr. Duggan at station discussing patient's plan of care at this time. No new orders at this time. Will continue to monitor q1hr and PRN.
[2020-08-17] MEDS: HYDROcodone-ACET 5/325MG TAB PO PRN (16:34)
--- NOTE | 2020-08-17 18:32 | NUR ---
Family Spoke with patient's Aimee patel; password confirmed. Updated on patient's current status and plan of care. All questions answered at this time.
--- NOTE | 2020-08-17 18:41 | NUR ---
Blood Bank Per [facility], patient's plasma has arrived. Will endorse to FERNANDO ROSAS.
--- NOTE | 2020-08-17 19:14 | NUR ---
Closing Shift Note Endorsed patient care to NOC RN. NOC RN aware of patient's pending plasma orders and availability at blood bank.
[2020-08-17] MEDS: ALBUTEROL SULF HFA 90MCG INH 200DOSE IN PRN (20:48)
--- NOTE | 2020-08-17 22:01 | NUR ---
convalescent plasma administration started
--- NOTE | 2020-08-17 23:07 | NUR ---
convalescent plasma completed, no reactions noted. pt tolerated well. will continue to monitor.
[2020-08-17] MEDS: ATORVASTATIN 20 MG TAB PO SCH (23:30)
[2020-08-17] MEDS: ENOXAPARIN SOD 100 MG/1 ML SYRINGE SC SCH (23:30)
[2020-08-18] MEDS: HYDROcodone-ACET 5/325MG TAB PO PRN ×2 (02:54→23:39)
[2020-08-18 05:00] VITALS: BP 111/75
[2020-08-18] MEDS: InsuLIN REG 1unit/0.01ml Soln (100units/ml) SC SCH ×4 (06:00→23:29)
[2020-08-18] MEDS: SODIUM CHLOR 0.9% PF (SALINE LOCK) 10ML VIAL/SYR IV SCH ×3 (06:43→23:23)
[2020-08-18] MEDS: ACCU-CHEK COMFORT CURVE STRIP VI SCH ×4 (06:43→23:28)
[2020-08-18] MEDS: BUDESONIDE (INHALATION) 180 MCG IH IN SCH ×2 (06:46→22:11)
--- NOTE | 2020-08-18 07:11 | NUR ---
closing note pt is resting in left lateral position. pt has a sitter. pt is currently on 15L oxymizer. endorsed care to day shift RN.
--- NOTE | 2020-08-18 07:30 | NUR ---
Opening Shift Note Assumed patient care from NOC RN. No signs of distress at this time. Patient is AOx4. Safety precautions in place, including sitter at bedside. Will continue to monitor q1hr and PRN.
[2020-08-18] MEDS: MULTIPLE VITAMIN TAB PO SCH (09:59)
[2020-08-18] MEDS: ZINC SULFATE 220mg CAP or TAB PO SCH (09:59)
[2020-08-18] MEDS: AMIODARONE HCL 200 MG TAB PO SCH (09:59)
[2020-08-18] MEDS: ASPirin 81 mg TAB PO SCH (09:59)
[2020-08-18] MEDS: DOXYCYCLINE 100MG/250ML 250 ML IV SCH ×2 (09:59→23:23)
[2020-08-18] MEDS: ASCORBIC ACID 1,000 MG TAB PO SCH (09:59)
[2020-08-18] MEDS: ENOXAPARIN SOD 100 MG/1 ML SYRINGE SC SCH ×2 (10:00→23:27)
[2020-08-18] MEDS: METOPROLOL SUCCINATE XL 50 MG TAB PO SCH (10:00)
[2020-08-18] MEDS: FAMOTIDINE INJECTION 40 MG in SODIUM CHL 0.9% 100 ML IV SCH ×2 (10:00→11:56)
[2020-08-18] MEDS: CHOLECALCIFEROL (VITD3) 2,000 UNIT CAP PO SCH (10:00)
[2020-08-18] MEDS: FUROSEMIDE 40 MG/4 ML VIAL IV SCH ×2 (10:00→11:00)
[2020-08-18] MEDS: DexAMETHasone SOD PHOS 10MG/1ML VIAL INJ IV SCH (11:00)
[2020-08-18] MEDS: ALBUTEROL SULF HFA 90MCG INH 200DOSE IN PRN ×2 (14:17→22:11)
[2020-08-18] MEDS ORDERED: TEMAZEPAM 15 MG CAP PO PRN (16:00)
[2020-08-18 17:00] VITALS: BP 117/78
[2020-08-18 22:01] VITALS: BP 118/83
[2020-08-18] MEDS: ATORVASTATIN 20 MG TAB PO SCH (23:24)
[2020-08-19 05:00] VITALS: BP 124/84
[2020-08-19] MEDS: SODIUM CHLOR 0.9% PF (SALINE LOCK) 10ML VIAL/SYR IV SCH ×3 (05:51→22:59)
[2020-08-19] MEDS: InsuLIN REG 1unit/0.01ml Soln (100units/ml) SC SCH ×4 (05:51→23:01)
[2020-08-19] MEDS: ACCU-CHEK COMFORT CURVE STRIP VI SCH ×4 (05:51→23:00)
[2020-08-19 06:13] LABS: Basophils # (auto) 0 10 ^3/uL (0-0.2); Basophils % (auto) 0.1 % (0.0-2.0); Eosinophils # (auto) 0 10 ^3/uL (0-0.8); Hematocrit 42.9 % (41.0-53.0); Hemoglobin 14.1 g/dL (13.5-17.5); Lymphocytes # (auto) 0.6 10 ^3/uL (0.4-5.4); Lymphocytes % (auto) 6.8 % (10.0-50.0); Mean Corpuscular Hemoglobin 31.2 pg (28.0-32.0); Mean Corpuscular Volume 94.5 fL (80.0-100.0); Monocytes # (auto) 0.8 10 ^3/uL (0-1.3); Monocytes % (auto) 8.8 % (0.0-12.0); Neutrophils # (auto) 7.3 10 ^3/uL (1.6-8.6); Neutrophils % (auto) 84.3 % (37.0-80.0); Platelet Count (auto) 355 10^3/uL (140-450); Red Blood Cells 4.54 10^6/uL (4.5-5.90); Red Cell Distribution Width 14.2 % (11.8-14.3); White Blood Cell 8.6 10^3/uL (4.4-10.8)
[2020-08-19 06:34] LABS: Potassium 4.6 mmol/L (3.5-5.1)
[2020-08-19] MEDS: BUDESONIDE (INHALATION) 180 MCG IH IN SCH ×2 (06:41→22:10)
[2020-08-19 07:06] LABS: BUN/Creatinine Ratio 21.3; Calcium 8.1 mg/dL (8.5-10.1)
--- NOTE | 2020-08-19 07:06 | NUR ---
closing note pt is resting in semi fowlers with HOB at 30 degrees. pt is on 11L oxymizer. no c/o pain at this time. Endorsed care to day shift RN.
[2020-08-19 08:00] VITALS: BP 115/72
[2020-08-19 08:21] VITALS: BP 113/78
[2020-08-19 09:00] VITALS: BP 124/84
[2020-08-19] MEDS: DexAMETHasone SOD PHOS 10MG/1ML VIAL INJ IV SCH (09:03)
[2020-08-19] MEDS: DOXYCYCLINE 100MG/250ML 250 ML IV SCH (09:04)
[2020-08-19] MEDS: ASPirin 81 mg TAB PO SCH (09:04)
[2020-08-19] MEDS: FUROSEMIDE 40 MG/4 ML VIAL IV SCH (09:04)
[2020-08-19] MEDS: ZINC SULFATE 220mg CAP or TAB PO SCH (09:04)
[2020-08-19] MEDS: ASCORBIC ACID 1,000 MG TAB PO SCH (09:05)
[2020-08-19] MEDS: METOPROLOL SUCCINATE XL 50 MG TAB PO SCH (09:05)
[2020-08-19] MEDS: AMIODARONE HCL 200 MG TAB PO SCH (09:05)
[2020-08-19] MEDS: MULTIPLE VITAMIN TAB PO SCH (09:05)
[2020-08-19] MEDS: CHOLECALCIFEROL (VITD3) 2,000 UNIT CAP PO SCH (09:06)
[2020-08-19] MEDS: ENOXAPARIN SOD 100 MG/1 ML SYRINGE SC SCH (09:06)
--- NOTE | 2020-08-19 10:37 | NUR ---
Nutrition Assessment Est energy needs 1681-3297 kcal (18-20 kcal/kg BW 94.1kg) est protein need 56-70g (0.6-0.75g/kg BW 94.1kg r/t elevated RFTs, possible CKD 4) Will monitor and reassess prn. Addendum: 08/19/20 at [address] Amended: Links added.
--- NOTE | 2020-08-19 13:00 | NUR ---
EDUCATED PATIENT ON USE OF IS. PATIENT SHOWED CORRECT USE WILL CONTINUE TO MONITOR
[2020-08-19] MEDS: ALBUTEROL SULF HFA 90MCG INH 200DOSE IN PRN (14:31)
[2020-08-19] MEDS: LACTULOSE 20Gm/30ML SOLN PO SCH (17:35)
[2020-08-19] MEDS: RIVAROXABAN 15 MG TAB PO SCH (18:35)
[2020-08-19 22:00] VITALS: BP 120/80
[2020-08-19] MEDS: ATORVASTATIN 20 MG TAB PO SCH (22:59)
[2020-08-19] MEDS: DOXYCYCLINE 100 MG TAB/CAP PO SCH (23:00)
[2020-08-20] MEDS: ALBUTEROL SULF HFA 90MCG INH 200DOSE IN PRN ×3 (00:57→22:41)
--- NOTE | 2020-08-20 02:20 | NUR ---
pt had nose bleed. stopped bleeding with gauze pads, and switched pt to 15 liters non rebreather.
[2020-08-20 05:00] VITALS: BP 110/82
[2020-08-20] MEDS: SODIUM CHLOR 0.9% PF (SALINE LOCK) 10ML VIAL/SYR IV SCH ×3 (05:18→22:36)
[2020-08-20] MEDS: InsuLIN REG 1unit/0.01ml Soln (100units/ml) SC SCH ×4 (05:19→23:43)
[2020-08-20] MEDS: ACCU-CHEK COMFORT CURVE STRIP VI SCH ×4 (05:19→23:42)
--- NOTE | 2020-08-20 05:50 | NUR ---
pt had a recurring nose bleed. pt explains that he has a history of nose bleeds. stopped bleeding with gauze pads.
[2020-08-20 06:53] LABS: Basophils # (auto) 0 10 ^3/uL (0-0.2); Basophils % (auto) 0.1 % (0.0-2.0); Eosinophils # (auto) 0 10 ^3/uL (0-0.8); Hematocrit 41.9 % (41.0-53.0); Lymphocytes # (auto) 0.6 10 ^3/uL (0.4-5.4); Lymphocytes % (auto) 5.9 % (10.0-50.0); Mean Corpuscular Hemoglobin 31.6 pg (28.0-32.0); Mean Corpuscular Hgb Conc. 33.5 g/dL (32.0-36.0); Mean Corpuscular Volume 94.5 fL (80.0-100.0); Monocytes # (auto) 0.8 10 ^3/uL (0-1.3); Monocytes % (auto) 7.8 % (0.0-12.0); Neutrophils # (auto) 8.5 10 ^3/uL (1.6-8.6); Neutrophils % (auto) 86.2 % (37.0-80.0); Platelet Count (auto) 362 10^3/uL (140-450); Red Blood Cells 4.44 10^6/uL (4.5-5.90); Red Cell Distribution Width 13.7 % (11.8-14.3); White Blood Cell 9.9 10^3/uL (4.4-10.8)
[2020-08-20 07:05] LABS: Potassium 4.3 mmol/L (3.5-5.1)
[2020-08-20 07:16] LABS: Albumin 2.6 g/dL (3.4-5.0); BUN/Creatinine Ratio 23.7; Bilirubin, Total 0.4 mg/dL (0.2-1.0); CRP High Sensitivity 1.94 mg/dL (< 0.3); Calcium 8.3 mg/dL (8.5-10.1); Total Protein 6.9 g/dL (6.4-8.2)
[2020-08-20] MEDS: BUDESONIDE (INHALATION) 180 MCG IH IN SCH ×2 (07:30→22:20)
--- NOTE | 2020-08-20 07:38 | NUR ---
closing note pt is on 15L non rebreather. o2 saturation is 100 percent. pt is currently resting in semi fowlers with HOB at 30 degrees. endorsed care to day shift RN.
--- NOTE | 2020-08-20 07:42 | NUR ---
Opening Shift Note Assumed care of patient, No signs of distress at this time. Patient is AOx4. Safety precautions in place, including sitter at bedside. Will continue to monitor q1hr and PRN.
[2020-08-20 09:00] VITALS: BP 127/80
[2020-08-20] MEDS: LACTULOSE 20Gm/30ML SOLN PO SCH (09:35)
[2020-08-20] MEDS: AMIODARONE HCL 200 MG TAB PO SCH (09:35)
[2020-08-20] MEDS: DexAMETHasone SOD PHOS 10MG/1ML VIAL INJ IV SCH (09:35)
[2020-08-20] MEDS: ZINC SULFATE 220mg CAP or TAB PO SCH (09:35)
[2020-08-20] MEDS: MULTIPLE VITAMIN TAB PO SCH (09:36)
[2020-08-20] MEDS: CHOLECALCIFEROL (VITD3) 2,000 UNIT CAP PO SCH (09:36)
[2020-08-20] MEDS: METOPROLOL SUCCINATE XL 50 MG TAB PO SCH (09:36)
[2020-08-20] MEDS: ASCORBIC ACID 1,000 MG TAB PO SCH (09:36)
[2020-08-20] MEDS: DOXYCYCLINE 100 MG TAB/CAP PO SCH ×2 (09:37→22:37)
[2020-08-20] MEDS: FUROSEMIDE 40 MG/4 ML VIAL IV SCH (09:37)
[2020-08-20] MEDS ORDERED: FAMOTIDINE 20 MG TAB PO SCH (10:00)
--- NOTE | 2020-08-20 11:05 | NUR ---
IV insertion IV access obtained, via clean sterile technique by inserting gauge catheter at Right AC after 2 attempt(s). IV secured properly. No trauma to site. Patient tolerated well.
[2020-08-20 12:54] VITALS: BP 148/76
[2020-08-20] MEDS: HYDROcodone-ACET 5/325MG TAB PO PRN (14:02)
[2020-08-20] MEDS ORDERED: ASCO500T11 PO (14:58)
[2020-08-20] MEDS ORDERED: CHOL1CAP47 PO (14:58)
[2020-08-20] MEDS ORDERED: ALBUAER3 IN (14:58)
[2020-08-20] MEDS ORDERED: PANT40TA2 PO (14:58)
[2020-08-20] MEDS ORDERED: ZINC220T6 PO (14:58)
[2020-08-20] MEDS ORDERED: MULTTAB99 PO (14:58)
[2020-08-20] MEDS ORDERED: METH4PAK PO (14:58)
[2020-08-20] MEDS ORDERED: PANTOPRAZOLE 40 MG TAB PO ONE (15:30)
[2020-08-20 16:49] VITALS: BP 116/72
[2020-08-20] MEDS: RIVAROXABAN 15 MG TAB PO SCH (17:03)
--- NOTE | 2020-08-20 19:30 | NUR ---
Opening Shift Note Assumed care of patient, awake and alert. No S/S of distress/SOB or pain. Instructed on POC and to call for assist PRN, will continue to monitor for changes Q1hr and PRN.
[2020-08-20 21:40] VITALS: BP 115/76
--- NOTE | 2020-08-20 21:40 | NUR ---
Patient O2 sat was 96-98% on 5L oxymizer. Attempted to place patient on 4L NC. Patient O2 saturation was from 88-90%. Returned patient back to 5L oxymizer. Will try again in the AM.
[2020-08-20] MEDS: ATORVASTATIN 20 MG TAB PO SCH (22:36)
[2020-08-21] MEDS: HYDROcodone-ACET 5/325MG TAB PO PRN (03:11)
[2020-08-21] MEDS: ONDANSETRON HCL 4 MG/2 ML VIAL IV PRN (03:22)
[2020-08-21 05:21] VITALS: BP 116/80
[2020-08-21] MEDS: InsuLIN REG 1unit/0.01ml Soln (100units/ml) SC SCH ×4 (06:00→18:40)
[2020-08-21] MEDS: ACCU-CHEK COMFORT CURVE STRIP VI SCH ×3 (06:08→18:40)
[2020-08-21] MEDS: SODIUM CHLOR 0.9% PF (SALINE LOCK) 10ML VIAL/SYR IV SCH ×3 (06:08→21:56)
[2020-08-21] MEDS: ALBUTEROL SULF HFA 90MCG INH 200DOSE IN PRN ×2 (07:35→19:17)
[2020-08-21] MEDS: BUDESONIDE (INHALATION) 180 MCG IH IN SCH ×2 (07:35→19:17)
[2020-08-21 09:00] VITALS: BP 113/75
[2020-08-21] MEDS: DexAMETHasone SOD PHOS 10MG/1ML VIAL INJ IV SCH (09:20)
[2020-08-21] MEDS: ZINC SULFATE 220mg CAP or TAB PO SCH (09:20)
[2020-08-21] MEDS: LACTULOSE 20Gm/30ML SOLN PO SCH ×2 (09:20→09:40)
[2020-08-21] MEDS: AMIODARONE HCL 200 MG TAB PO SCH (09:21)
[2020-08-21] MEDS: PANTOPRAZOLE 40 MG TAB PO SCH (09:21)
[2020-08-21] MEDS: MULTIPLE VITAMIN TAB PO SCH (09:21)
[2020-08-21] MEDS: ASCORBIC ACID 1,000 MG TAB PO SCH (09:22)
[2020-08-21] MEDS: DOXYCYCLINE 100 MG TAB/CAP PO SCH ×2 (09:22→21:56)
[2020-08-21] MEDS: CHOLECALCIFEROL (VITD3) 2,000 UNIT CAP PO SCH (09:22)
--- NOTE | 2020-08-21 09:40 | NUR ---
Patient Rounds Patient SpO2 at 87% on 6L oxymizer. Patient assisted to proning position; during repositioning patient SpO2 decreased to 79-81% on 6L oxymizer. Patient currently in prone position on 6L oxymizer, SpO2 96%.
--- NOTE | 2020-08-21 09:41 | NUR ---
Opening Shift Note Assumed patient care from FERNANDO ROSAS. Patient is AOx4 but complains of "being really tired." Safety precautions in place, including sitter. No signs of distress at this time. Will continue to monitor q1hr and PRN. Addendum: 08/21/20 at 0942 by CHINMAY PATEL RN RN Wrong Time. 0730.
[2020-08-21] MEDS: FUROSEMIDE 40 MG/4 ML VIAL IV SCH (09:43)
[2020-08-21] MEDS: METOPROLOL SUCCINATE XL 50 MG TAB PO SCH (09:44)
--- NOTE | 2020-08-21 11:00 | NUR ---
at Bedside Dr. Duggan at bedside discussing plan of care with patient. Per Dr. Duggan, patient to receive additional unit of convalescent plasma at this time. Will continue to monitor q1hr and PRN.
--- NOTE | 2020-08-21 12:00 | NUR ---
Patient Rounds Per leny, patient stated "give me the paper so I can leave." This RN explained risks of leaving against medical advice, including serious injury and . Per patient, he wants to speak to his family members at this time. Per patient, "I want to talk to my cousin first." Patient called family members on personal cell phone. Received call from family member, Aimee, password confirmed. Explained situation and risks of patient leaving AMA and MD recommendations for continued care. Per Aimee, will speak with patient regarding patient's wishes. --- Patient no longer desires to leave AMA at this time.
[2020-08-21 12:45] VITALS: BP 124/42
[2020-08-21] MEDS ORDERED: LORazepam 0.5 MG TAB PO PRN (14:00)
--- NOTE | 2020-08-21 15:52 | NUR ---
Assessment Patient is a 65-year-old male who is alert and oriented. Prior to admission patient reside home with his fiance Aimee and functioned independently. Prior to admission patient could care for his own ADLs. Patient will return home to his prior living arrangements post discharge and he will find someone to transport home on the day of discharge. Patient does not have any medical equipment now. Advised patient there is a social service consult for home health services. Patient ask me to contact Aimee in regards of home health service. Contact Aimee provided her with information and choice letter. Aimee requested [facility]. Informed Aimee clinical information will be faxed to agency. Informed patient he has the right to participate in all discharge planning. Patient does not have an advance directive. Patient has been provided with an advanced directive. Patient verbalized understanding and agrees to discharge plan. Faxed clinical information to [facility]. Per Audrey with [employer] [facility] patient has been accepted and service to start within 24-48hrs upon d.c day. Addendum: 08/21/20 at 1556 by ANABEL FERRO Amended: Links added.
[2020-08-21 17:00] VITALS: BP 112/70
[2020-08-21] MEDS: RIVAROXABAN 15 MG TAB PO SCH (18:40)
[2020-08-21] MEDS: ATORVASTATIN 20 MG TAB PO SCH (21:56)
[2020-08-21 22:00] VITALS: BP 134/79
[2020-08-22] VITALS (9 sets, daily range): BP systolic 98–136; BP diastolic 64–83
[2020-08-22] MEDS: ACCU-CHEK COMFORT CURVE STRIP VI SCH ×5 (00:02→23:40)
[2020-08-22] MEDS: InsuLIN REG 1unit/0.01ml Soln (100units/ml) SC SCH ×5 (00:13→23:42)
[2020-08-22 06:01] LABS: Basophils # (auto) 0.1 10 ^3/uL (0-0.2); Basophils % (auto) 0.4 % (0.0-2.0); Eosinophils # (auto) 0 10 ^3/uL (0-0.8); Hematocrit 46.5 % (41.0-53.0); Hemoglobin 15.3 g/dL (13.5-17.5); Lymphocytes # (auto) 0.8 10 ^3/uL (0.4-5.4); Lymphocytes % (auto) 5.6 % (10.0-50.0); Mean Corpuscular Hemoglobin 31.1 pg (28.0-32.0); Mean Corpuscular Hgb Conc. 32.8 g/dL (32.0-36.0); Mean Corpuscular Volume 94.7 fL (80.0-100.0); Monocytes # (auto) 1.1 10 ^3/uL (0-1.3); Monocytes % (auto) 7.9 % (0.0-12.0); Neutrophils # (auto) 12.2 10 ^3/uL (1.6-8.6); Neutrophils % (auto) 86.1 % (37.0-80.0); Nucleated Red Blood Cells % 0.1 %; Platelet Count (auto) 467 10^3/uL (140-450); Red Blood Cells 4.92 10^6/uL (4.5-5.90); Red Cell Distribution Width 14.1 % (11.8-14.3); White Blood Cell 14.2 10^3/uL (4.4-10.8)
[2020-08-22 06:19] LABS: Potassium 4.5 mmol/L (3.5-5.1)
[2020-08-22 06:25] LABS: Albumin 2.6 g/dL (3.4-5.0); BUN/Creatinine Ratio 26.1; Bilirubin, Total 0.6 mg/dL (0.2-1.0); Calcium 8.4 mg/dL (8.5-10.1); Total Protein 7.5 g/dL (6.4-8.2)
[2020-08-22] MEDS: SODIUM CHLOR 0.9% PF (SALINE LOCK) 10ML VIAL/SYR IV SCH ×3 (06:37→22:41)
[2020-08-22] MEDS: FUROSEMIDE 40 MG/4 ML VIAL IV SCH (09:59)
[2020-08-22] MEDS: LACTULOSE 20Gm/30ML SOLN PO SCH (09:59)
[2020-08-22] MEDS: BUDESONIDE (INHALATION) 180 MCG IH IN SCH ×2 (10:00→19:34)
[2020-08-22] MEDS: PANTOPRAZOLE 40 MG TAB PO SCH (10:00)
[2020-08-22] MEDS: DOXYCYCLINE 100 MG TAB/CAP PO SCH ×2 (10:00→22:41)
[2020-08-22] MEDS: ZINC SULFATE 220mg CAP or TAB PO SCH (10:00)
[2020-08-22] MEDS: AMIODARONE HCL 200 MG TAB PO SCH (10:00)
[2020-08-22] MEDS: METOPROLOL SUCCINATE XL 50 MG TAB PO SCH (10:00)
[2020-08-22] MEDS: CHOLECALCIFEROL (VITD3) 2,000 UNIT CAP PO SCH (10:01)
[2020-08-22] MEDS: ASCORBIC ACID 1,000 MG TAB PO SCH (10:01)
[2020-08-22] MEDS: DexAMETHasone SOD PHOS 10MG/1ML VIAL INJ IV SCH (10:01)
[2020-08-22] MEDS: MULTIPLE VITAMIN TAB PO SCH (10:01)
--- NOTE | 2020-08-22 12:01 | NUR ---
Nutrition Followup Note Wt 92.2 kg Pt is covid positive in isolation did not pcik up call. pt is currently on cardiac diet with adequate PO of > 75% x 3 per RN doc. pt with no distress noted per nursing Est energy needs 9349-6485 kcal (18-20 kcal/kg BW 94.1kg) est protein need 56-70g (0.6-0.75g/kg BW 94.1kg r/t elevated RFTs, possible CKD 4) Will monitor and reassess prn. Labs: BUN 55 H CREAT 2.11 H CA 8.1 L, ALB 2.6 L BM: Pt had 1 BM yesterday per Rn note Skin: BS 17 mod risk refer to skin care notes for details per RN doc PES: Overweight aeb pt with a BMI of 29.8kg/m2 r/t caloric intake in excess of needs Altered nutrition related labs aeb pt with elevated RFTs, hypoalb r/t chronic medical conditions Comments Will continue to monitor PO status, skin status, pertinent labs and weight trends. Will f/u in 3-5 days Rec: 1) refer pt to OPD on Dc 2) Consider renal specific 70g protein diet along with Cardiac 2g Na. 3) continue current plan foc are
--- NOTE | 2020-08-22 15:01 | NUR ---
IV INSERTION TO RIGHT WRIST #20. FLUSHES WELL. PT TOLERATED WELL. IV DC'D TO RAC #20, LH #22, CATHETER INTACT, NO PHLEBITIS. CALL LIGHT WITHIN REACH.
[2020-08-22] MEDS: MORPHINE SULFATE 4 MG/ML SYR/VIAL IV PRN (15:06)
[2020-08-22] MEDS: RIVAROXABAN 15 MG TAB PO SCH (17:49)
[2020-08-22] MEDS: ALBUTEROL SULF HFA 90MCG INH 200DOSE IN PRN (19:35)
[2020-08-22] MEDS: ATORVASTATIN 20 MG TAB PO SCH (22:41)
[2020-08-23 05:00] VITALS: BP 130/78
[2020-08-23] MEDS: ACCU-CHEK COMFORT CURVE STRIP VI SCH ×4 (06:00→23:54)
[2020-08-23] MEDS: InsuLIN REG 1unit/0.01ml Soln (100units/ml) SC SCH ×3 (06:00→18:00)
[2020-08-23] MEDS: SODIUM CHLOR 0.9% PF (SALINE LOCK) 10ML VIAL/SYR IV SCH ×3 (06:00→21:35)
[2020-08-23] MEDS: BUDESONIDE (INHALATION) 180 MCG IH IN SCH ×2 (06:33→21:39)
[2020-08-23] MEDS: ALBUTEROL SULF HFA 90MCG INH 200DOSE IN PRN (06:33)
--- NOTE | 2020-08-23 07:20 | NUR ---
ASSUMED CARE OF PATIENT AWAKE AND ALERT. RESPIRATIONS EVEN AND UNLABORED ON 7L OXYMIZER. UPDATED PATIENT ON PLAN OF CARE AND TO CALL FOR ASSISTANCE IF NEEDED. HOB ELEVATED AT LEAST 30 DEGREES, CALL LIGHT IS WITHIN REACH, BED LOCKED IN LOWEST POSITION AND SITTER IS PRESENT AT BEDSIDE.
[2020-08-23 08:50] VITALS: BP 114/76
[2020-08-23] MEDS: LACTULOSE 20Gm/30ML SOLN PO SCH (10:41)
[2020-08-23] MEDS: DexAMETHasone SOD PHOS 10MG/1ML VIAL INJ IV SCH (10:41)
[2020-08-23] MEDS: FUROSEMIDE 40 MG/4 ML VIAL IV SCH (10:41)
[2020-08-23] MEDS: AMIODARONE HCL 200 MG TAB PO SCH (10:42)
[2020-08-23] MEDS: MULTIPLE VITAMIN TAB PO SCH (10:42)
[2020-08-23] MEDS: ZINC SULFATE 220mg CAP or TAB PO SCH (10:42)
[2020-08-23] MEDS: METOPROLOL SUCCINATE XL 50 MG TAB PO SCH (10:43)
[2020-08-23] MEDS: DOXYCYCLINE 100 MG TAB/CAP PO SCH (10:43)
[2020-08-23] MEDS: ASCORBIC ACID 1,000 MG TAB PO SCH (10:43)
[2020-08-23] MEDS: PANTOPRAZOLE 40 MG TAB PO SCH (10:43)
[2020-08-23] MEDS: CHOLECALCIFEROL (VITD3) 2,000 UNIT CAP PO SCH (10:44)
[2020-08-23] MEDS ORDERED: FLUTICASONE PROP NASAL SPR 0.05 % (50MCG) 16GM EACHNOSTRI ONE (12:45)
--- NOTE | 2020-08-23 13:00 | NUR ---
UPDATED DR LEACH ON CURRENT STATUS OF PATIENT. NO NEW ORDERS AT THIS TIME. CONTINUE CARE.
[2020-08-23 14:10] VITALS: BP 108/71
[2020-08-23] MEDS: FLUTICASONE PROP NASAL SPR 0.05 % (50MCG) 16GM EACHNOSTRI SCH ×2 (14:13→21:35)
[2020-08-23 17:02] VITALS: BP 129/80
[2020-08-23] MEDS: RIVAROXABAN 15 MG TAB PO SCH (17:39)
--- NOTE | 2020-08-23 18:00 | NUR ---
PATIENT REFUSED PT. PATIENT SAID HE HAD ALREADY AMBULATED IN ROOM. Addendum: 08/23/20 at 1801 by KARIE ESCOBAR PTT Amended: Links added.
--- NOTE | 2020-08-23 19:17 | NUR ---
ENDORSED CARE TO NOC SHIFT RN
[2020-08-23 20:53] VITALS: BP 114/65
[2020-08-23] MEDS: ATORVASTATIN 20 MG TAB PO SCH (21:36)
[2020-08-24] MEDS: InsuLIN REG 1unit/0.01ml Soln (100units/ml) SC SCH ×5 (00:01→23:52)
[2020-08-24] MEDS: ALBUTEROL SULF HFA 90MCG INH 200DOSE IN PRN ×3 (01:21→23:38)
[2020-08-24 05:00] VITALS: BP 121/68
[2020-08-24] MEDS: ACCU-CHEK COMFORT CURVE STRIP VI SCH ×4 (05:42→23:46)
[2020-08-24] MEDS: SODIUM CHLOR 0.9% PF (SALINE LOCK) 10ML VIAL/SYR IV SCH ×3 (05:43→23:06)
[2020-08-24 06:59] LABS: Basophils # (auto) 0 10 ^3/uL (0-0.2); Eosinophils # (auto) 0 10 ^3/uL (0-0.8); Eosinophils % (auto) 0.1 % (0.0-7.0); Lymphocytes # (auto) 0.9 10 ^3/uL (0.4-5.4); Monocytes # (auto) 1.3 10 ^3/uL (0-1.3); Monocytes % (auto) 9.8 % (0.0-12.0); Neutrophils % (auto) 83.2 % (37.0-80.0); Red Cell Distribution Width 13.9 % (11.8-14.3)
[2020-08-24 07:01] LABS: Basophils % (auto) 0.1 % (0.0-2.0); Hematocrit 44.4 % (41.0-53.0); Hemoglobin 14.7 g/dL (13.5-17.5); Lymphocytes % (auto) 6.8 % (10.0-50.0); Mean Corpuscular Hemoglobin 31.1 pg (28.0-32.0); Mean Corpuscular Hgb Conc. 33.2 g/dL (32.0-36.0); Mean Corpuscular Volume 93.6 fL (80.0-100.0); Neutrophils # (auto) 10.8 10 ^3/uL (1.6-8.6); Nucleated Red Blood Cells % 0.2 %; Red Blood Cells 4.74 10^6/uL (4.5-5.90)
[2020-08-24] MEDS: BUDESONIDE (INHALATION) 180 MCG IH IN SCH ×2 (07:07→22:12)
[2020-08-24 07:20] LABS: Potassium 4.7 mmol/L (3.5-5.1)
[2020-08-24 07:26] LABS: BUN/Creatinine Ratio 32.8
[2020-08-24 07:27] LABS: Calcium 8.7 mg/dL (8.5-10.1)
[2020-08-24 09:00] VITALS: BP 128/66
[2020-08-24] MEDS: FLUTICASONE PROP NASAL SPR 0.05 % (50MCG) 16GM EACHNOSTRI SCH ×2 (09:13→23:05)
[2020-08-24 09:23] LABS: Platelet Count (auto) 557 10^3/uL (140-450)
[2020-08-24] MEDS: DexAMETHasone SOD PHOS 10MG/1ML VIAL INJ IV SCH (09:23)
[2020-08-24] MEDS: AMIODARONE HCL 200 MG TAB PO SCH (09:24)
[2020-08-24] MEDS: PANTOPRAZOLE 40 MG TAB PO SCH (09:24)
[2020-08-24] MEDS: MULTIPLE VITAMIN TAB PO SCH (09:24)
[2020-08-24] MEDS: LACTULOSE 20Gm/30ML SOLN PO SCH (09:24)
[2020-08-24] MEDS: METOPROLOL SUCCINATE XL 50 MG TAB PO SCH (09:25)
[2020-08-24] MEDS: CHOLECALCIFEROL (VITD3) 2,000 UNIT CAP PO SCH (09:25)
[2020-08-24] MEDS: ASCORBIC ACID 1,000 MG TAB PO SCH (09:25)
[2020-08-24] MEDS: ZINC SULFATE 220mg CAP or TAB PO SCH (09:26)
[2020-08-24] MEDS: FUROSEMIDE 40 MG/4 ML VIAL IV SCH (10:00)
[2020-08-24 13:00] VITALS: BP 148/92
[2020-08-24 17:00] VITALS: BP 127/85
[2020-08-24] MEDS: RIVAROXABAN 15 MG TAB PO SCH (17:19)
--- NOTE | 2020-08-24 17:45 | NUR ---
Oxygen titrated down to 6L NC from 8L oximizer. Pt O2 saturation 92%, pt tolerating well.
[2020-08-24] MEDS: ATORVASTATIN 20 MG TAB PO SCH (22:00)
[2020-08-24] MEDS: MORPHINE SULFATE 4 MG/ML SYR/VIAL IV PRN (23:16)
[2020-08-25] VITALS: BP 111/70
[2020-08-25] MEDS: ONDANSETRON HCL 4 MG/2 ML VIAL IV PRN (00:02)
[2020-08-25 05:00] VITALS: BP 112/69
[2020-08-25] MEDS: ACCU-CHEK COMFORT CURVE STRIP VI SCH ×4 (05:41→23:46)
[2020-08-25] MEDS: InsuLIN REG 1unit/0.01ml Soln (100units/ml) SC SCH ×4 (05:41→23:50)
[2020-08-25] MEDS: SODIUM CHLOR 0.9% PF (SALINE LOCK) 10ML VIAL/SYR IV SCH ×3 (05:41→21:24)
[2020-08-25 06:09] LABS: Basophils % (auto) 0.3 % (0.0-2.0); Eosinophils # (auto) 0 10 ^3/uL (0-0.8); Hemoglobin 14.7 g/dL (13.5-17.5); Lymphocytes # (auto) 0.7 10 ^3/uL (0.4-5.4); Lymphocytes % (auto) 4.5 % (10.0-50.0); Red Cell Distribution Width 13.9 % (11.8-14.3)
[2020-08-25 06:13] LABS: Basophils # (auto) 0 10 ^3/uL (0-0.2); Hematocrit 43.6 % (41.0-53.0); Mean Corpuscular Hemoglobin 31.8 pg (28.0-32.0); Mean Corpuscular Hgb Conc. 33.8 g/dL (32.0-36.0); Mean Corpuscular Volume 94.1 fL (80.0-100.0); Monocytes # (auto) 1.6 10 ^3/uL (0-1.3); Monocytes % (auto) 10.1 % (0.0-12.0); Neutrophils # (auto) 13.5 10 ^3/uL (1.6-8.6); Neutrophils % (auto) 85.1 % (37.0-80.0); Nucleated Red Blood Cells % 0.1 %; Platelet Count (auto) 531 10^3/uL (140-450); Red Blood Cells 4.63 10^6/uL (4.5-5.90); White Blood Cell 15.8 10^3/uL (4.4-10.8)
[2020-08-25] MEDS: ALBUTEROL SULF HFA 90MCG INH 200DOSE IN PRN ×2 (07:13→19:36)
[2020-08-25] MEDS: BUDESONIDE (INHALATION) 180 MCG IH IN SCH ×2 (07:13→22:03)
--- NOTE | 2020-08-25 07:13 | NUR ---
Respiratory note: FOUND PATIENT ON 6LNC SPO2 81%, PLACED PATIENT ON 12OXYMIZER. SPO2 91%
[2020-08-25 09:00] VITALS: BP 109/69
[2020-08-25] MEDS: FUROSEMIDE 40 MG/4 ML VIAL IV SCH (10:00)
[2020-08-25] MEDS: LACTULOSE 20Gm/30ML SOLN PO SCH (10:00)
[2020-08-25] MEDS: MULTIPLE VITAMIN TAB PO SCH (10:54)
[2020-08-25] MEDS: FLUTICASONE PROP NASAL SPR 0.05 % (50MCG) 16GM EACHNOSTRI SCH ×2 (10:54→21:24)
[2020-08-25] MEDS: METOPROLOL SUCCINATE XL 50 MG TAB PO SCH (10:55)
[2020-08-25] MEDS: ZINC SULFATE 220mg CAP or TAB PO SCH (10:56)
[2020-08-25] MEDS: PANTOPRAZOLE 40 MG TAB PO SCH (10:56)
[2020-08-25] MEDS: DexAMETHasone SOD PHOS 10MG/1ML VIAL INJ IV SCH (10:56)
[2020-08-25] MEDS: AMIODARONE HCL 200 MG TAB PO SCH (10:57)
[2020-08-25] MEDS: CHOLECALCIFEROL (VITD3) 2,000 UNIT CAP PO SCH (10:57)
[2020-08-25] MEDS: ASCORBIC ACID 1,000 MG TAB PO SCH (10:57)
--- NOTE | 2020-08-25 12:24 | NUR ---
Nutrition Followup Note Wt 93.2 kg Pt is covid positive in isolation. Pt with no new distress. Pt is with a Cardiac 2g Na diet with a good appetite aeb pt with 87.5% po intake x 3 days per RN note Est energy needs 8437-9597 kcal (18-20 kcal/kg BW 94.1kg) est protein need 56-70g (0.6-0.75g/kg BW 94.1kg r/t elevated RFTs, possible CKD 4) Will monitor and reassess prn. Labs: BUN 66H, Creat 2.01H, Alb 2.6L, Na 133L, GLUC 151H BM: Pt had 1 BM 08/25 per Rn note Skin: BS 19 low risk refer to skin care notes for details per RN doc PES: Overweight aeb pt with a BMI of 29.8kg/m2 r/t caloric intake in excess of needs Altered nutrition related labs aeb pt with elevated RFTs, hypoalb r/t chronic medical conditions Comments Will continue to monitor PO status, skin status, pertinent labs and weight trends. Will f/u in 3-5 days Rec: 1) refer pt to OPD on Dc 2) Consider renal specific 70g protein diet along with Cardiac 2g Na. 3) continue current plan of care
[2020-08-25 13:00] VITALS: BP 126/71
[2020-08-25 17:00] VITALS: BP 118/67
[2020-08-25] MEDS: RIVAROXABAN 15 MG TAB PO SCH (17:40)
[2020-08-25] MEDS: HYDROcodone-ACET 5/325MG TAB PO PRN (20:00)
[2020-08-25] MEDS: ATORVASTATIN 20 MG TAB PO SCH (21:24)
[2020-08-25 22:00] VITALS: BP 116/71
[2020-08-26] MEDS: HYDROcodone-ACET 5/325MG TAB PO PRN (04:53)
[2020-08-26 05:00] VITALS: BP 114/75
[2020-08-26] MEDS: ACCU-CHEK COMFORT CURVE STRIP VI SCH ×2 (05:39→12:00)
[2020-08-26] MEDS: InsuLIN REG 1unit/0.01ml Soln (100units/ml) SC SCH ×2 (05:39→12:00)
[2020-08-26] MEDS: SODIUM CHLOR 0.9% PF (SALINE LOCK) 10ML VIAL/SYR IV SCH ×2 (05:39→14:00)
[2020-08-26 06:25] LABS: Basophils # (auto) 0 10 ^3/uL (0-0.2); Eosinophils # (auto) 0 10 ^3/uL (0-0.8); Lymphocytes # (auto) 0.8 10 ^3/uL (0.4-5.4); Mean Corpuscular Hgb Conc. 33.3 g/dL (32.0-36.0)
[2020-08-26 06:28] LABS: Basophils % (auto) 0.1 % (0.0-2.0); Hemoglobin 14.6 g/dL (13.5-17.5); Lymphocytes % (auto) 6.4 % (10.0-50.0); Mean Corpuscular Hemoglobin 31.5 pg (28.0-32.0); Mean Corpuscular Volume 94.5 fL (80.0-100.0); Monocytes % (auto) 8.4 % (0.0-12.0); Neutrophils # (auto) 10.5 10 ^3/uL (1.6-8.6); Neutrophils % (auto) 85.1 % (37.0-80.0); Platelet Count (auto) 502 10^3/uL (140-450); Red Blood Cells 4.65 10^6/uL (4.5-5.90); Red Cell Distribution Width 13.9 % (11.8-14.3); White Blood Cell 12.3 10^3/uL (4.4-10.8)
[2020-08-26 06:32] LABS: Potassium 5.2 mmol/L (3.5-5.1)
[2020-08-26 06:38] LABS: BUN/Creatinine Ratio 31.7; Calcium 8.5 mg/dL (8.5-10.1)
[2020-08-26] MEDS: BUDESONIDE (INHALATION) 180 MCG IH IN SCH (06:46)
[2020-08-26] MEDS: ALBUTEROL SULF HFA 90MCG INH 200DOSE IN PRN (06:46)
[2020-08-26] MEDS: DexAMETHasone SOD PHOS 10MG/1ML VIAL INJ IV SCH (10:26)
[2020-08-26] MEDS: FLUTICASONE PROP NASAL SPR 0.05 % (50MCG) 16GM EACHNOSTRI SCH (10:26)
[2020-08-26] MEDS: LACTULOSE 20Gm/30ML SOLN PO SCH (10:27)
[2020-08-26] MEDS: FUROSEMIDE 40 MG/4 ML VIAL IV SCH (10:27)
[2020-08-26] MEDS: ZINC SULFATE 220mg CAP or TAB PO SCH (10:27)
[2020-08-26] MEDS: AMIODARONE HCL 200 MG TAB PO SCH (10:29)
[2020-08-26] MEDS: MULTIPLE VITAMIN TAB PO SCH (10:34)
[2020-08-26] MEDS: PANTOPRAZOLE 40 MG TAB PO SCH (10:34)
[2020-08-26] MEDS: METOPROLOL SUCCINATE XL 50 MG TAB PO SCH (10:35)
[2020-08-26] MEDS: ASCORBIC ACID 1,000 MG TAB PO SCH (10:36)
[2020-08-26] MEDS: CHOLECALCIFEROL (VITD3) 2,000 UNIT CAP PO SCH (10:36)
--- NOTE | 2020-08-26 16:33 | NUR ---
D/C planning Regarding social service consult for home oxygen 5-6 l/min. Faxed clinical information to [facility] requesting portable oxygen to be deliver to front lobby and concentrate oxygen to home. Per Lizbeth with [facility] portable to be deliver by 17:00.
--- NOTE | 2020-08-26 17:46 | NUR ---
Discharge instructions given as ordered. Encourage to follow up with PMD as instructed. All questions and concerns addressed. Patient verbalized understanding. IV removed with catheter intact, pressure dressing applied. Telemetry unit returned to ICU. Patient taken to vehicle via wheelchair with all personal belongings, accompanied by staff and family member. No distress noted at time of departure.
== END 2020-08-26 17:45 | disposition home health service (06) | DRG 871 ==
LOC: ER 19:18 → TELE 19:19 → TELE-CENTR 08-16 05:55 → TELE-WESTW 08-26 17:04
PROVIDERS: ADMIT Nurse Practitioner Family; ATTEND Internal Medicine
PROC: XW13325 Transfusion of Convalescent Plasma (Nonautologous) into Peripheral Vein, Percutaneous Approach, New Technology Group 5 (ICD-10-PCS; principal; 2020-08-17)
DX: A41.89 Other specified sepsis (principal); U07.1 COVID-19; J12.89 Other viral pneumonia; J96.01 Acute respiratory failure with hypoxia; I21.4 Non-ST elevation (NSTEMI) myocardial infarction; N17.0 Acute kidney failure with tubular necrosis; I50.43 Acute on chronic combined systolic (congestive) and diastolic (congestive) heart failure; D68.9 Coagulation defect, unspecified; I13.0 Hypertensive heart and chronic kidney disease with heart failure and stage 1 through stage 4 chronic kidney disease, or unspecified chronic kidney disease; E44.1 Mild protein-calorie malnutrition; I42.9 Cardiomyopathy, unspecified; N18.4 Chronic kidney disease, stage 4 (severe); E11.22 Type 2 diabetes mellitus with diabetic chronic kidney disease; I25.10 Atherosclerotic heart disease of native coronary artery without angina pectoris; J45.909 Unspecified asthma, uncomplicated; I48.91 Unspecified atrial fibrillation; R04.0 Epistaxis; F12.10 Cannabis abuse, uncomplicated; Z95.810 Presence of automatic (implantable) cardiac defibrillator; F15.10 Other stimulant abuse, uncomplicated; Z68.30 Body mass index [BMI] 30.0-30.9, adult; Z88.2 Allergy status to sulfonamides; I25.2 Old myocardial infarction; Z82.49 Family history of ischemic heart disease and other diseases of the circulatory system; Z87.01 Personal history of pneumonia (recurrent); Z88.8 Allergy status to other drugs, medicaments and biological substances
CPT/HCPCS: 36415; 36600; 70450; 71045; 80048; 80053; 80307; 81001; 82728; 82805; 82962; 83036; 83615; 83735; 83880; 84484; 85025; 85379; 85610; 85730; 86141; 86850; 86900; 86901; 87426; 93005; 93306; 94640; 96374; 97110; 97116; 97163; 97530; G0378; J1100; J1815; J2405; J3490